=== PATIENT | female | born 1980 | race Caucasian/White ===

== ENCOUNTER → 2022-03-05 | Outpatient (CLI) | payer OTHER ==
--- NOTE | 2022-03-11 10:55 | BMR ---
EXAMINATION TYPE: MR breast BILAT wo con DATE OF EXAM: 03/05/2022 COMPARISON: Outside bilateral breast mammogram February 07, 2022 BI-RADS 2. Outside left breast ultras ound same date BI-RADS 2. HISTORY: LEAKAGE OF BREAST PROSTHESIS AND IMPLANT. Bilateral silicone implants placed 2011. TECHNIQUE: A series of fat and water weighted images in the long and short axis views of both breasts are obtained. Three-dimensional and additional postprocessing imaging is created on independent w orkstation and reviewed during official interpretation of this study. FINDINGS: Heterogeneously dense fibroglandular tissue bilaterally is redemonstrated. There are benign -appearing bilateral axillary lymph nodes noted. Bilateral breast implants are identified. Volumes th e implants are fairly symmetric in appearance on MRI with slightly more prominent glandular tissue an terior to the left breast implant. Both half abnormal infolding consistent with intracapsular rupture . No free silicone identified bilaterally to suggest extracapsular rupture bilaterally.. 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 No extracapsular ruptu re identified. BI-RADS 2 benign findings. Recommendation: Appropriate clinical and/or surgical management. Patient due for Annual bilateral jacinto ast mammogram January 2023.
== END | disposition home or self-care (01) ==
LOC: RADMRIMAIN 08:01
PROVIDERS: ATTEND Family Medicine
DX: T85.43XD Leakage of breast prosthesis and implant, subsequent encounter (principal)
CPT/HCPCS: 77047

== ENCOUNTER → 2024-04-01 | Outpatient (CLI) | payer BC ==
--- NOTE | 2024-04-05 11:00 | MM ---
Reason for Exam: Screening (asymptomatic). Last mammogram was performed 2 year(s) and 2 month(s) ago. Patient History: Menarche at age 15. First Full-Term at age 26. Premenopausal. Patient has history of breast feeding. Risk Values: Elaina 5 year model risk: 0.7%. NCI Lifetime model risk: 10.0%. Prior Study Comparison: 02/07/2022 Bilateral MG diagnostic mammo w CAD ADALID - 2, [facility]. Tissue Density: The breasts are heterogeneously dense, which may obscure small masses. Findings: Analyzed By CAD. Bilateral breast implants appear intact. Right breast: There is no suspicious group of microcalcifications or new suspicious mass. Left breast: There is no suspicious group of microcalcifications or new suspicious mass. Overall Assessment: Benign, BI-RAD 2 Management: Screening Mammogram of both breasts in [address] [facility] will attempt to contact patient to return for supplemental views and ultrasound if indicated. Patient should continue monthly self-breast exams. A clinical breast exam by your physician is recommended on an annual basis. This exam should not preclude additional follow-up of suspicious palpable abnormalities. Note on Elaina scores and lifetime risk: 1. A Elaina score greater than 3% is considered moderate risk. If this is the case, consider specialist referral to assess eligibility for a risk reducing agent. 2. If overall lifetime risk for the development of breast cancer is 20% or higher, the patient may qualify for future screening with alternating mammogram and breast MRI. [facility], , 04/05/2024 10:57 AM. Electronically signed and approved by: Darrell Zuñiga DO
== END | disposition home or self-care (01) ==
LOC: RADMAMWWP 10:11
PROVIDERS: ATTEND Internal Medicine
DX: Z12.31 Encounter for screening mammogram for malignant neoplasm of breast (principal); R92.333 Mammographic heterogeneous density, bilateral breasts
CPT/HCPCS: 77063; 77067